=== PATIENT | female | born 1985 | race Caucasian/White ===

== ENCOUNTER → 2016-12-19 | Outpatient (CLI) | payer OTHER ==
[~2016-12-19] MED LIST: ACHD5005 PO; DCS100C PO; Ibuprofen PO; PREN-102 PO; SMT80CT PO
--- OUTSIDE RECORDS SUMMARY | 2016-12-19 09:41 | XMS REPORT ---
Author VINAY Jordan [facility] eClinicalWorks Address Unknown Phone Unavailable Care Team Providers Care Cataract Lens Generator Name Role Phone VINAY EDWARD Unavailable Allergies No Known Allergies Problems Problem Type Condition Code Onset Dates Condition Status Assessment Encounter for immunization Z23 Active Medications No Known Medications Procedures Procedure Coding System Code Date SINGLE IMMUNIZATION ADMIN CPT-4 67601 Aug 07, 2016 FLUARIX QUAD P-FREE 3 AND UP .50 2015 CPT-4 20483 Aug 07, 2016 Results No Known Results Immunizations Vaccine Administration Date FLUARIX QUAD P-FREE 3 AND UP .50 2015Aug 07, 2016 Summary Purpose eClinicalWorks Submission
--- NOTE | 2016-12-19 18:12 | Diagnostic Imaging Report ---
Transabdominal and transvaginal pelvic ultrasound. INDICATION: Right lower quadrant abdominal pain. FINDINGS: The uterus is 7.9 x 4.3 x 3.0 cm. The endometrial stripe is 5 mm in thickness. There is a fairly homogeneous appearance of the myometrium with no discrete mass. The right ovary is 3.6 x 2.1 x 3.2 cm and the left ovary is 2.7 x 2.3 x 3.2 cm. There are arterial and venous waveforms demonstrated in both ovaries. No adnexal mass or fluid collection seen. IMPRESSION: Unremarkable exam. Dictated by: Dictated on workstation # [id number]
== END ==
LOC: RAD 09:38
PROVIDERS: ATTEND Nurse Practitioner
DX: R10.31 Right lower quadrant pain (principal); N93.8 Other specified abnormal uterine and vaginal bleeding
CPT/HCPCS: 76830; 76856

== ENCOUNTER → 2017-03-13 | Outpatient (CLI) | payer OTHER | LOC: LAB 11:42 | PROVIDERS: ATTEND Obstetrics & Gynecology | DX: N93.8 Other specified abnormal uterine and vaginal bleeding (principal); E34.9 Endocrine disorder, unspecified | CPT/HCPCS: 36415; 84702 ==

== ENCOUNTER → 2017-03-17 | Outpatient (CLI) | payer OTHER | END | disposition home or self-care (01) | LOC: LAB 09:56 | PROVIDERS: ATTEND Obstetrics & Gynecology | DX: O20.0 Threatened abortion (principal) | CPT/HCPCS: 36415; 84702 ==

== ENCOUNTER → 2017-04-07 | Outpatient (CLI) | payer OTHER | LOC: LAB 09:55 | PROVIDERS: ATTEND Obstetrics & Gynecology | DX: O03.9 Complete or unspecified spontaneous abortion without complication (principal) | CPT/HCPCS: 36415; 84702 ==

== ENCOUNTER → 2017-09-15 | Outpatient (CLI) | payer OTHER ==
--- NOTE | 2017-09-15 17:38 | Diagnostic Imaging Report ---
INDICATION: Anatomic survey. TECHNIQUE: Multiple real-time grayscale images were obtained over the gravid uterus transabdominally. COMPARISON: None FINDINGS: Biometrical measurements are as follows: Biparietal 5.07 cm, age 21 weeks 3 days. Head circumference 19.69 cm, age 22 weeks 0 days. Abdominal circumference 16.23 cm, age 21 weeks 3 days. Femur length 3.78 cm, age 22 weeks 1 days. Sonographic estimate age: 21 weeks 6 days. Sonographic estimated date of delivery: 01/20/2018. Estimated Weight: 441 gm (+/- 64 gm). LMP percentile: 41%. heart rate: 152 beats per minute. number: 1 of 1. The amniotic fluid is within normal limits with a vertical pocket measuring 5 cm in size. The placenta is grade 2, with posterior location and appears borderline low lying, approximately 2.8 cm from the internal os. The position is variable. The kidneys, bladder, stomach, four-chamber heart, three-vessel cord, spine, and cord insertion are visualized. The intracranial structures including the ventricles and posterior fossa are not well seen due to positioning. The cervix measures 4.7 cm in length. IMPRESSION: 1. Single intrauterine gestation, with a heart rate of 152 bpm, measuring 21 weeks and 6 days. This is concordant with the clinical dates. 2. Anatomic survey as described above. The intracranial structures are not well-seen due to positioning. 3. Borderline low-lying placenta, recommend attention on followup exam. Dictated by: Dictated on workstation # [id number]
== END ==
LOC: RAD 13:49
PROVIDERS: ATTEND Obstetrics & Gynecology
DX: Z34.92 Encounter for supervision of normal pregnancy, unspecified, second trimester (principal); Z3A.21 21 weeks gestation of pregnancy
CPT/HCPCS: 76805

== ENCOUNTER 2018-01-08 05:35 | Outpatient (CLI) | payer OTHER ==
[~2018-01-08] VITALS: Ht 162.6 cm; Wt 92.5 kg
[2018-01-08] MEDS ORDERED: [UNRECOGNIZED DRUG - CODE] PO (11:20)
[2018-01-08] MEDS ORDERED: PNV1TABL81 PO (11:20)
== END 2018-01-08 11:42 ==
LOC: PREOP 05:35
PROVIDERS: ATTEND Obstetrics & Gynecology
DX: Z01.818 Encounter for other preprocedural examination (principal); O34.211 Maternal care for low transverse scar from previous cesarean delivery

== ENCOUNTER 2018-01-14 05:20 | Inpatient (IN) | payer OTHER ==
[~2018-01-14] VITALS: Ht 162.6 cm; Wt 90.7 kg
[~2018-01-14 05:20] MED LIST changes: +PNV1TABL81 PO; +[UNRECOGNIZED DRUG - CODE] PO
[2018-01-14] MEDS ORDERED: LACTATED RINGERS 1,000 ML IV SCH ×2 (10:27)
[2018-01-14] MEDS ORDERED: FAMOTIDINE 20MG/2ML IV (PEPCID) IV ONE (10:30)
[2018-01-14] MEDS ORDERED: CITRIC ACID/SOB CIT (BICITRA) 30 ML UDC PO ONE (10:30)
[2018-01-14] MEDS ORDERED: METOCLOPRAMIDE INJ 10 MG/2 ML (REGLAN) IV ONE (10:30)
[2018-01-14] MEDS ORDERED: ceFAZolin INJECTION 1,000 MG in NS (IVPB) 100 ML IV ONE (10:45)
[2018-01-14 10:50] VITALS: BP 113/66
[2018-01-14] MEDS ORDERED: raNItidine 50 MG/2 ML INJ (ZANTAC) IV ONE (11:15)
[2018-01-14 11:25] LABS: BASOPHILS % (AUTO) 0 % (0-10); EOSINOPHILS # (AUTO) 0.1 10^3/uL (0.0-0.3); EOSINOPHILS % (AUTO) 1 % (0-10); HEMATOCRIT 37 % (35-52); HEMOGLOBIN 12.9 G/DL (11.5-16.0); LYMPHOCYTES # (AUTO) 1.8 X 10^3 (1.0-4.0); LYMPHOCYTES % (AUTO) 18 % (12-44); MEAN CORPUSCULAR HEMOGLOBIN 32 PG (25-34); MEAN CORPUSCULAR HGB CONC 35 G/DL (32-36); MEAN CORPUSCULAR VOLUME 91 FL (80-99); MEAN PLATELET VOLUME 9.9 FL (7.4-10.4); MONOCYTES # (AUTO) 0.7 X 10^3 (0.0-1.0); MONOCYTES % (AUTO) 7 % (0-12); NEUTROPHILS # (AUTO) 7.6 X 10^3 (1.8-7.8); NEUTROPHILS % (AUTO) 74 % (42-75); PLATELET COUNT 159 10^3/uL (130-400); RED BLOOD COUNT 4.08 10^6/uL (4.35-5.85); RED CELL DISTRIBUTION WIDTH 13.6 % (10.0-14.5); WHITE BLOOD COUNT 10.2 10^3/uL (4.3-11.0)
[2018-01-14] MEDS ORDERED: OXYTOCIN/NORMAL SALINE 1,000 ML IV ONE (11:53)
[2018-01-14] MEDS ORDERED: ONDANSETRON 4 MG/2 ML (SDV) Z0FRAN ONE (11:56)
[2018-01-14] MEDS ORDERED: fentaNYL INJECTION 100 MCG/2 ML AMP ONE (11:57)
[2018-01-14] MEDS ORDERED: ceFAZolin 1,000 MG (ANCEF) VIAL ONE (11:59)
[2018-01-14] MEDS ORDERED: NS (IVPB) 100 ML ONE (11:59)
--- NOTE | 2018-01-14 12:10 | Progress Note-Pre Operative ---
Pre-Operative Progress Note H&P Reviewed The H&P was reviewed, patient examined and no changes noted. Date Seen by Provider: Jan 14, 2018 Time Seen by Provider: 12:00 Date H&P Reviewed: Jan 14, 2018 Time H&P Reviewed: 11:45 Pre-Operative Diagnosis: Previous section, GBS + ALENA PANIAGUA DO Jan 14, 2018 12:10
[2018-01-14 12:19] LABS: BILIRUBIN,URINE NEGATIVE (NEGATIVE); CLARITY,URINE CLEAR; COLOR,URINE YELLOW; GLUCOSE, URINE (UA) NEGATIVE (NEGATIVE); KETONES,URINE 3+ (NEGATIVE); LEUKOCYTE ESTERASE ,URINE NEGATIVE (NEGATIVE); NITRITE,URINE NEGATIVE (NEGATIVE); PH,URINE 6 (5-9); PROTEIN,URINE NEGATIVE (NEGATIVE); UROBILINOGEN,URINE NORMAL (NORMAL)
[2018-01-14 12:27] LABS: BACTERIA,URINE NEGATIVE /HPF; WBC,URINE RARE /HPF
[2018-01-14] MEDS ORDERED: PHENYLEPHRINE 100 MCG/ML 10 ML (ANESTHESIA) SYR ONE (12:51)
[2018-01-14] MEDS ORDERED: D5 LR IV SOLUTION 1,000 ML IV SCH (13:16)
[2018-01-14] MEDS ORDERED: OXYTOCIN/NORMAL SALINE 500 ML IV SCH (13:16)
[2018-01-14] MEDS ORDERED: TETANUS,DIPTH,PERTUSS P/F (BOOSTRIX) 0.5 ML VIAL IM SCH (13:30)
[2018-01-14] MEDS ORDERED: HYDROmorphone 2 MG/ML VIAL (DILAUDID) IVP PRN ×2 (13:30)
[2018-01-14] MEDS ORDERED: MEASLES,MUMPS,RUBELLA 1 EA INJ SC SCH (13:30)
[2018-01-14] MEDS ORDERED: ONDANSETRON 4 MG/2 ML (SDV) Z0FRAN IVP PRN (13:30)
[2018-01-14] MEDS ORDERED: fentaNYL INJECTION 100 MCG/2 ML AMP IVP PRN (13:30)
[2018-01-14] MEDS ORDERED: PROMETHAZINE INJ 25 MG/ML (PHENERGAN) AMP IVP PRN (13:30)
[2018-01-14] MEDS ORDERED: KETOROLAC 30 MG/ML VIAL IVP SCH (13:30)
--- NOTE | 2018-01-14 13:39 | Cesarean Section Operative ---
Procedure Procedure Note Pre-operative Diagnosis: Mikayla Whelan is a 32 /Para 3/1 ,Gestational Age 39 weeks for repeat section Post-operative Diagnosis: same, omental adhesions Procedure: Repeat low transverse section Physician: ALENA PANIAGUA Estimated blood loss: 750 mL Disposition: stable Findings: Viable male infant, Apgars 8/9, weight 8#3oz, intact placenta, 3vc, normal appearing uterus, tubes, and ovaries. Indications:Mikayla Whelan is a (32 /Para 3/1 ,Gestational Age 39 weeks for repeat section. Procedure Details: The patient was seen in pre-op and the procedure was discussed with the patient in full, including the risks, benefits, and alternatives. All questions were answered. The patient was taken to the operating room and a time out was performed, verifying patient and procedure. After spinal anesthesia was placed by our anesthesia colleagues, the patient was placed in the dorsal supine with leftward tilt for uterine displacement.~ Her abdomen was then prepped and draped in the typical sterile fashion. A Pfannenstiel skin incision was made using a scalpel and carried down through the underlying fascia. The fascia was incised in the midline and tented up using Stuart clamps. On both the inferior and superior fascia side the rectus muscle was dissected off bluntly and sharply using Galo scissors. The peritoneum was identified and entered bluntly in the midline. This was then stretched laterally using manual strength. After entering the abdominal cavity and confirming lack of intraperitoneal adhesions, a large Ron retractor was placed and the lower uterine segment was visualized. A scalpel was utilized to make a low transverse uterine incision. Amniotomy was performed with an Allis clamp with return of clear fluid. The 's head was grasped and brought to the level of the incision. head delivered with assistance of the silastic suction and was delivered without difficulty. Mouth and nares were suctioned with bulb suction. After the umbilical cord was clamped and cut, the was handed off to the pediatric staff. A sample of cord blood was then obtained. The placenta was delivered intact via uterine massage. The uterus was cleared of all clots and debris. The uterine incision was closed using 0 Vicryl in a running locked fashion. A second imbricated layer was placed using 0 Vicryl in a running fashion as well. The bilateral tubes and ovaries appeared normal. The abdominal gutters were cleared of all clots and debris. A final check of the uterine incision showed it to be hemostatic. Now previously noted omental adhesions were taken down off the anterior abdominal wall and also the left side of the lower uterine segment. These were taken down with cautery and a small portion of omentum was removed due to bleeding and scarring. The peritoneum was closed using 3-0 Vicryl in a running fashion. The fascia was closed with 0 Vicryl in a running fashion. The subcutaneous space was hemostatic , and irrigated. The subcutaneous space was closed with 3-0 Vicryl in several single interrupted stitches. The skin was then closed using 4-0 Monocryl in a running subcuticular fashion. The skin edges were reapproximated together and were hemostatic. A pressure dressing was applied. All sponge, lap and needle counts were correct at the end of the procedure per nursing. Vitals - Labs Vital Signs - I&O Vital Signs Date Time Temp Pulse Resp B/P (MAP) Pulse Ox O2 Delivery O2 Flow Rate FiO2 01/14/18 10:50 98.1 83 18 113/66 (82) Room Air Labs Laboratory Tests 01/14/18 11:05: White Blood Count 10.2, Red Blood Count 4.08L, Hemoglobin 12.9, Hematocrit 37, Mean Corpuscular Volume 91, Mean Corpuscular Hemoglobin 32, Mean Corpuscular Hemoglobin Concent 35, Red Cell Distribution Width 13.6, Platelet Count 159, Mean Platelet Volume 9.9, Neutrophils (%) (Auto) 74, Lymphocytes (%) (Auto) 18, Monocytes (%) (Auto) 7, Eosinophils (%) (Auto) 1, Basophils (%) (Auto) 0, Neutrophils # (Auto) 7.6, Lymphocytes # (Auto) 1.8, Monocytes # (Auto) 0.7, Eosinophils # (Auto) 0.1, Basophils # (Auto) 0.0 01/14/18 12:00: Urine Color YELLOW, Urine Clarity CLEAR, Urine pH 6, Urine Specific Bureau 1.015L, Urine Protein NEGATIVE, Urine Glucose (UA) NEGATIVE, Urine Ketones 3+H, Urine Nitrite NEGATIVE, Urine Bilirubin NEGATIVE, Urine Urobilinogen NORMAL, Urine Leukocyte Esterase NEGATIVE, Urine RBC (Auto) NEGATIVE, Urine RBC NONE, Urine WBC RARE, Urine Squamous Epithelial Cells 2-5, Urine Crystals NONE, Urine Bacteria NEGATIVE, Urine Casts NONE, Urine Mucus NEGATIVE, Urine Culture Indicated NO ALENA PANIAGUA DO Jan 14, 2018 13:39
[2018-01-14 15:10] VITALS: BP 96/59
[2018-01-14] MEDS: HYDROcodone/APAP 5 MG/325 MG (LORTAB) TAB PO PRN ×2 (16:43→20:35)
[2018-01-14] MEDS ORDERED: IBUPROFEN 600 MG (MOTRIN) TAB PO ONE (20:29)
[2018-01-14] MEDS: DOCUSATE SODIUM 100 MG (COLACE) CAP PO SCH (20:34)
[2018-01-14] MEDS: IBUPROFEN 600 MG (MOTRIN) TAB PO SCH (20:34)
[2018-01-14 20:35] VITALS: BP 106/72
[2018-01-14] MEDS ORDERED: DOCUSATE SODIUM 100 MG (COLACE) CAP PO SCH ×2 (21:00)
[2018-01-15 00:35] VITALS: BP 96/57
[2018-01-15] MEDS ORDERED: IBUPROFEN 600 MG (MOTRIN) TAB PO ONE ×2 (03:04→09:23)
[2018-01-15] MEDS: IBUPROFEN 600 MG (MOTRIN) TAB PO SCH ×4 (03:20→21:32)
[2018-01-15] MEDS: HYDROcodone/APAP 5 MG/325 MG (LORTAB) TAB PO PRN ×4 (03:20→18:43)
[2018-01-15 03:22] VITALS: BP 108/73
[2018-01-15 06:35] LABS: BASOPHILS % (AUTO) 0 % (0-10); EOSINOPHILS % (AUTO) 0 % (0-10); HEMATOCRIT 36 % (35-52); HEMOGLOBIN 12.5 G/DL (11.5-16.0); LYMPHOCYTES # (AUTO) 1.7 X 10^3 (1.0-4.0); LYMPHOCYTES % (AUTO) 12 % (12-44); MEAN CORPUSCULAR HEMOGLOBIN 32 PG (25-34); MEAN CORPUSCULAR HGB CONC 35 G/DL (32-36); MEAN CORPUSCULAR VOLUME 91 FL (80-99); MEAN PLATELET VOLUME 9.6 FL (7.4-10.4); MONOCYTES % (AUTO) 7 % (0-12); NEUTROPHILS # (AUTO) 11.2 X 10^3 (1.8-7.8); NEUTROPHILS % (AUTO) 80 % (42-75); PLATELET COUNT 158 10^3/uL (130-400); RED BLOOD COUNT 3.89 10^6/uL (4.35-5.85); RED CELL DISTRIBUTION WIDTH 13.7 % (10.0-14.5)
[2018-01-15 09:30] VITALS: BP 117/75
[2018-01-15] MEDS: FERROUS SULF 325 MG (IRON) TAB PO SCH (09:30)
[2018-01-15] MEDS: DOCUSATE SODIUM 100 MG (COLACE) CAP PO SCH ×2 (09:30→21:32)
--- OUTSIDE RECORDS SUMMARY | 2018-01-15 10:28 | XMS REPORT ---
Author Author Lily Lomas Organization [facility] Address [address] [place], [place] [id number] Care Team Providers Care Ent Nurse Name Role Phone Lily Lomas PCP [phone] Lily Lomas PreferredProvider [phone] Allergies and Adverse Reactions Name Reaction Notes PENICILLINS SULFA (SULFONAMIDES) Plan of Treatment Not available. Medications Not available. Problem List Not available. 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 History of Past Illness Name Date of Onset Comments Anxiety Amenorrhea Feb 20 2017 9:34AM Payers Insurance Name Company Name Plan Name Plan Number Policy Number Policy Group Number Start Date [facility] [employer] [id number] N/A History of Encounters Visit Date Visit Type Provider 02/20/2017 Office visit Lily Lomas APRN
--- OUTSIDE RECORDS SUMMARY | 2018-01-15 10:28 | XMS REPORT ---
Author VINAY Jordan [facility] eClinicalWorks Address Unknown Phone Unavailable Care Team Providers Care Seal Delivery Vehicle Officer Name Role Phone VINAY EDWARD Unavailable Allergies No Known Allergies Problems Problem Type Condition Code Onset Dates Condition Status Assessment Encounter for immunization Z23 Active Medications No Known Medications Procedures Procedure Coding System Code Date SINGLE IMMUNIZATION ADMIN CPT-4 31123 Aug 07, 2016 FLUARIX QUAD P-FREE 3 AND UP .50 2015 CPT-4 21361 Aug 07, 2016 Results No Known Results Immunizations Vaccine Administration Date FLUARIX QUAD P-FREE 3 AND UP .50 2015Aug 07, 2016 Summary Purpose eClinicalWorks Submission
--- OUTSIDE RECORDS SUMMARY | 2018-01-15 10:29 | XMS REPORT | Continuity of Care Document ---
Author Author [facility] Organization [facility] Address Unknown Phone Unavailable Allergies Active Description Code Type Severity Reaction Onset Reported/Identified Relationship to Patient Clinical Status Yes Penicillins [id number] Drug Allergy Unknown N/A 03/11/2014 Yes Sulfa (Sulfonamide Antibiotics) [id number] Drug Allergy Unknown N/A 2013 Medications There is no data. Problems Date Dx Coded Attending Type Code Diagnosis Diagnosed By 03/17/2014 ALENA PANIAGUA DO Ot 652.21 BREECH PRESENTAT-DELIVER 03/17/2014 ALENA PANIAGUA DO Ot 658.01 OLIGOHYDRAMNIOS-DELIVER 03/17/2014 ALENA PANIAGUA DO Ot 660.01 OBSTRUC/FET MALPOS-DELIV 03/17/2014 ALENA PANIAGUA DO Ot V06.1 [id number], COMBINED [ 03/17/2014 ALENA PANIAGUA DO Ot V27.0 DELIVER-SINGLE LIVEBORN 03/27/2014 ROXI RACHEL, SHIRA Luther Ot 666.14 POSTPART HEM NEC-POSTPAR 12/19/2016 ALENA PANIAGUA DO Ot 652.23 BREECH PRESENT-ANTEPART 12/19/2016 ALENA PANIAGUA DO Ot 658.03 OLIGOHYDRAMNIOS-ANTEPAR 12/19/2016 ALENA PANIAGUA DO Ot V72.83 EXAM PRE-OPERATIVE NEC 12/19/2016 ALENA PANIAGUA DO Ot V74.8 SCREEN-BACTERIAL DIS NEC 12/19/2016 PARKER FERGUSON SODA WORKER Ot N93.8 OTHER SPECIFIED ABNORMAL UTERINE AND VAG 12/19/2016 PARKER FERGUSONP Ot R10.31 RIGHT LOWER QUADRANT PAIN 12/25/2016 PARKER FERGUSONP Ot N93.8 OTHER SPECIFIED ABNORMAL UTERINE AND VAG 12/25/2016 PARKER FERGUSON SODA WORKER Ot R10.31 RIGHT LOWER QUADRANT PAIN 01/22/2017 QUICK, PARKER W SODA WORKER Ot N93.8 OTHER SPECIFIED ABNORMAL UTERINE AND VAG 01/22/2017 PARKER FERGUSON SODA WORKER Ot R10.31 RIGHT LOWER QUADRANT PAIN 03/14/2017 PANIAGUA DO ALENA C Ot E34.9 ENDOCRINE DISORDER, UNSPECIFIED 03/14/2017 PANIAGUA DO, ALENA C Ot N93.8 OTHER SPECIFIED ABNORMAL UTERINE AND VAG 03/17/2017 PANIAGUA DO, ALENA C Ot O20.0 THREATENED 04/14/2017 PANIAGUA DO ALENA C Ot E34.9 ENDOCRINE DISORDER, UNSPECIFIED 04/14/2017 PANIAGUA DO, ALENA C Ot N93.8 OTHER SPECIFIED ABNORMAL UTERINE AND VAG 04/17/2017 PANIAGUA DO ALENA C Ot O20.0 THREATENED 05/06/2017 PANIAGUA DO ALENA C Ot O03.9 COMPLETE OR UNSP SPONTANEOUS [place] 09/11/2017 PARKER FERGUSON SODA WORKER Ot N93.8 OTHER SPECIFIED ABNORMAL UTERINE AND VAG 09/11/2017 PARKER FERGUSON SODA WORKER Ot R10.31 RIGHT LOWER QUADRANT PAIN 09/11/2017 PANIAGUA DO ALENA C Ot E34.9 ENDOCRINE DISORDER, UNSPECIFIED 09/11/2017 PANIAGUA DO, ALENA C Ot N93.8 OTHER SPECIFIED ABNORMAL UTERINE AND VAG 09/11/2017 PANIAGUA DO ALENA C Ot O20.0 THREATENED 09/11/2017 PANIAGUA DO ALENA C Ot O03.9 COMPLETE OR UNSP SPONTANEOUS [place] 10/27/2017 JAC PANIAGUA DOA C Ot Z34.92 ENCNTR FOR SUPRVSN OF NORMAL PREG, UNSP, 10/27/2017 ALENA PANIAGUA DO C Ot Z3A.21 21 WEEKS GESTATION OF 10/27/2017 ARCELIA JOVEL ALENA C Ot Z34.92 ENCNTR FOR SUPRVSN OF NORMAL PREG, UNSP, 10/27/2017 JAC PANIAGUA DOA C Ot Z3A.21 21 WEEKS GESTATION OF 11/04/2017 ALENA PANIAGUA DO C Ot Z34.92 ENCNTR FOR SUPRVSN OF NORMAL PREG, UNSP, 11/04/2017 ARCELIA JOVEL ALENA C Ot Z3A.21 21 WEEKS GESTATION OF 01/08/2018 ALENA PANIAGUA DO Ot O34.211 MATERN CARE FOR LOW TRANSVERSE SCAR FROM 01/08/2018 PANIAGUA DO, ALENA C Ot Z01.818 ENCOUNTER FOR OTHER PREPROCEDURAL EXAMIN 01/12/2018 PANIAGUAElie JOVEL ALENA C Ot O34.211 MATERN CARE FOR LOW TRANSVERSE SCAR FROM 01/12/2018 PANIAGUA DO ALENA C Ot Z01.818 ENCOUNTER FOR OTHER PREPROCEDURAL EXAMIN 01/14/2018 MARTY PARKER W SODA WORKER Ot N93.8 OTHER SPECIFIED ABNORMAL UTERINE AND VAG 01/14/2018 MARTY PARKER W SODA WORKER Ot R10.31 RIGHT LOWER QUADRANT PAIN 01/14/2018 PANIAGUA DO, ALENA C Ot E34.9 ENDOCRINE DISORDER, UNSPECIFIED 01/14/2018 PANIAGUA DO, ALENA C Ot N93.8 OTHER SPECIFIED ABNORMAL UTERINE AND VAG 01/14/2018 PANIAGUA DO, ALENA C Ot O20.0 THREATENED 01/14/2018 PANIAGUA DO, ALENA C Ot O03.9 COMPLETE OR UNSP SPONTANEOUS [place] 01/14/2018 MARTY PARKER W SODA WORKER Ot N93.8 OTHER SPECIFIED ABNORMAL UTERINE AND VAG 01/14/2018 PARKER FERGUSON SODA WORKER Ot R10.31 RIGHT LOWER QUADRANT PAIN 01/14/2018 PANIAGUA DO, ALENA C Ot E34.9 ENDOCRINE DISORDER, UNSPECIFIED 01/14/2018 PANIAGUA DO, ALENA C Ot N93.8 OTHER SPECIFIED ABNORMAL UTERINE AND VAG 01/14/2018 PANIAGUA DO, ALENA C Ot O20.0 THREATENED 01/14/2018 PANIAGUA DO, ALENA C Ot O03.9 COMPLETE OR UNSP SPONTANEOUS [place] 01/14/2018 MARTY PARKER W SODA WORKER Ot N93.8 OTHER SPECIFIED ABNORMAL UTERINE AND VAG 01/14/2018 MARTY PARKER W SODA WORKER Ot R10.31 RIGHT LOWER QUADRANT PAIN 01/14/2018 PANIAGUA DO, ALENA C Ot E34.9 ENDOCRINE DISORDER, UNSPECIFIED 01/14/2018 PANIAGUA DO, ALENA C Ot N93.8 OTHER SPECIFIED ABNORMAL UTERINE AND VAG 01/14/2018 PANIAGUA DO, ALENA C Ot O20.0 THREATENED 01/14/2018 PANIAGUA DO, ALENA C Ot O03.9 COMPLETE OR UNSP SPONTANEOUS WI 01/14/2018 MARTY PARKER W SODA WORKER Ot N93.8 OTHER SPECIFIED ABNORMAL UTERINE AND VAG 01/14/2018 PARKER FERGUSON W SODA WORKER Ot R10.31 RIGHT LOWER QUADRANT PAIN 01/14/2018 PANIAGUA DO, ALENA C Ot E34.9 ENDOCRINE DISORDER, UNSPECIFIED 01/14/2018 PANIAGUA DO, ALENA C Ot N93.8 OTHER SPECIFIED ABNORMAL UTERINE AND VAG 01/14/2018 PANIAGUA DO, ALENA C Ot O20.0 THREATENED 01/14/2018 PANIAGUA DO, ALENA C Ot O03.9 COMPLETE OR UNSP SPONTANEOUS WI 01/14/2018 PARKER FERGUSON SODA WORKER Ot N93.8 OTHER SPECIFIED ABNORMAL UTERINE AND VAG 01/14/2018 PARKER FERGUSON SODA WORKER Ot R10.31 RIGHT LOWER QUADRANT PAIN 01/14/2018 PANIAGUA DO, ALENA C Ot E34.9 ENDOCRINE DISORDER, UNSPECIFIED 01/14/2018 PANIAGUA DO, ALENA C Ot N93.8 OTHER SPECIFIED ABNORMAL UTERINE AND VAG 01/14/2018 PANIAGUA DO, ALENA C Ot O20.0 THREATENED 01/14/2018 PANIAGUA DO, ALENA C Ot O03.9 COMPLETE OR UNSP SPONTANEOUS [place] 01/15/2018 PARKER FERGUSON SODA WORKER Ot N93.8 OTHER SPECIFIED ABNORMAL UTERINE AND VAG 01/15/2018 PARKER FERGUSON SODA WORKER Ot R10.31 RIGHT LOWER QUADRANT PAIN 01/15/2018 PANIAGUA DO, ALENA C Ot E34.9 ENDOCRINE DISORDER, UNSPECIFIED 01/15/2018 PANIAGUA DO, ALENA C Ot N93.8 OTHER SPECIFIED ABNORMAL UTERINE AND VAG 01/15/2018 PANIAGUA DO, ALENA C Ot O20.0 THREATENED 01/15/2018 PANIAGUA DO, ALENA C Ot O03.9 COMPLETE OR UNSP SPONTANEOUS [place] Procedures Code Description Performed By Performed On 74.1 LOW CERVICAL 03/15/2014 Results Test Result Range Serum or plasma choriogonadotropin measurement (units/volume) - 04/07/17 10:01 Serum or plasma choriogonadotropin measurement (units/volume) < m[iU ]/mL <5 Complete blood count (CBC) with automated white blood cell (WBC) differential - 01/14/18 11:05 Blood leukocytes automated count (number/volume) 10.2 10*3/uL 4.3-11.0 Blood erythrocytes automated count (number/volume) 4.08 10*6/uL 4.35-5.85 Venous blood hemoglobin measurement (mass/volume) 12.9 g/dL 11.5-16.0 Blood hematocrit (volume fraction) 37 % 35-52 Automated erythrocyte mean corpuscular volume 91 [foz_us] 80-99 Automated erythrocyte mean corpuscular hemoglobin (mass per erythrocyte) 32 pg 25-34 Automated erythrocyte mean corpuscular hemoglobin concentration measurement ( mass/volume) 35 g/dL 32-36 Automated erythrocyte distribution width ratio 13.6 % 10.0-14.5 Automated blood platelet count (count/volume) 159 10*3/uL 130-400 Automated blood platelet mean volume measurement 9.9 [foz_us] 7.4-10.4 Automated blood neutrophils/100 leukocytes 74 % 42-75 Automated blood lymphocytes/100 leukocytes 18 % 12-44 Blood monocytes/100 leukocytes 7 % 0-12 Automated blood eosinophils/100 leukocytes 1 % 0-10 Automated blood basophils/100 leukocytes 0 % 0-10 Blood neutrophils automated count (number/volume) 7.6 10*3 1.8-7.8 Blood lymphocytes automated count (number/volume) 1.8 10*3 1.0-4.0 Blood monocytes automated count (number/volume) 0.7 10*3 0.0-1.0 Automated eosinophil count 0.1 10*3/uL 0.0-0.3 Automated blood basophil count (count/volume) 0.0 10*3/uL 0.0-0.1 Blood type T Indirect antibody screen panel - 01/14/18 11:05 ABO+Rh group AP NRG Transfusion band number [id number] BANNER Blood group antibody screen NEGATIVE NR Complete urinalysis with reflex to culture - 01/14/18 12:00 Urine color determination YELLOW NRG Urine clarity determination CLEAR NRG Urine pH measurement by test strip 6 5-9 Specific gravity of urine by test strip 1.015 1.016- 1.022 Urine protein assay by test strip, semi-quantitative NEGATIVE NEGATIVE Urine glucose detection by automated test strip NEGATIVE NEGATIVE Erythrocytes detection in urine sediment by light microscopy NEGATIVE NEGATIVE Urine ketones detection by automated test strip 3+ NEGATIVE Urine nitrite detection by test strip NEGATIVE NEGATIVE Urine total bilirubin detection by test strip NEGATIVE NEGATIVE Urine urobilinogen measurement by automated test strip (mass/volume) NORMAL NORMAL Urine leukocyte esterase detection by dipstick NEGATIVE NEGATIVE Automated urine sediment erythrocyte count by microscopy (number/high power field) NONE NRG Automated urine sediment leukocyte count by microscopy (number/high power field ) RARE NRG Bacteria detection in urine sediment by light microscopy NEGATIVE NRG Squamous epithelial cells detection in urine sediment by light microscopy 2-5 NRG Crystals detection in urine sediment by light microscopy NONE NRG Casts detection in urine sediment by light microscopy NONE NRG Mucus detection in urine sediment by light microscopy NEGATIVE NRG Complete urinalysis with reflex to culture NO NRG Complete blood count (CBC) with automated white blood cell (WBC) differential - 01/15/18 06:30 Blood leukocytes automated count (number/volume) 14.0 10*3/uL 4.3-11.0 Blood erythrocytes automated count (number/volume) 3.89 10*6/uL 4.35-5.85 Venous blood hemoglobin measurement (mass/volume) 12.5 g/dL 11.5-16.0 Blood hematocrit (volume fraction) 36 % 35-52 Automated erythrocyte mean corpuscular volume 91 [foz_us] 80-99 Automated erythrocyte mean corpuscular hemoglobin (mass per erythrocyte) 32 pg 25-34 Automated erythrocyte mean corpuscular hemoglobin concentration measurement ( mass/volume) 35 g/dL 32-36 Automated erythrocyte distribution width ratio 13.7 % 10.0-14.5 Automated blood platelet count (count/volume) 158 10*3/uL 130-400 Automated blood platelet mean volume measurement 9.6 [foz_us] 7.4-10.4 Automated blood neutrophils/100 leukocytes 80 % 42-75 Automated blood lymphocytes/100 leukocytes 12 % 12-44 Blood monocytes/100 leukocytes 7 % 0-12 Automated blood eosinophils/100 leukocytes 0 % 0-10 Automated blood basophils/100 leukocytes 0 % 0-10 Blood neutrophils automated count (number/volume) 11.2 10*3 1.8-7.8 Blood lymphocytes automated count (number/volume) 1.7 10*3 1.0-4.0 Blood monocytes automated count (number/volume) 1.0 10*3 0.0-1.0 Automated eosinophil count 0.0 10*3/uL 0.0-0.3 Automated blood basophil count (count/volume) 0.0 10*3/uL 0.0-0.1 Encounters ACCT No. Visit Date/Time Discharge Status Pt. Type Provider Facility Loc./Unit Complaint [id number] 01/08/2018 05:35:00 01/08/2018 11:42:00 DIS Outpatient ALENA PANIAGUA DO [facility] PREOP PREVIOUS [id number] 09/15/2017 13:49:00 09/15/2017 23:59:59 CLS Outpatient ALENA PANIAGUA DO [facility] RAD FETUS PRESENT DURING [id number] 04/07/2017 09:55:00 04/07/2017 23:59:59 CLS Outpatient ALENA PANIAGUA DO [facility] LAB O03.9 [id number] 03/17/2017 09:56:00 03/17/2017 23:59:59 CLS Outpatient ALENA PANIAGUA DO [facility] LAB O20.0 [id number] 03/13/2017 11:42:00 03/13/2017 23:59:59 CLS Outpatient ALENA PANIAGUA DO [facility] LAB E34.9,N93.8 [id number] 12/19/2016 09:38:00 12/19/2016 23:59:59 CLS Outpatient PARKER FERGUSON [facility] RAD RLQ ABD PAIN [id number] 03/27/2014 10:39:00 03/27/2014 12:22:00 DIS Emergency SHIRA DIANE MD [facility] ER VAG BLEEDING [id number] 03/15/2014 06:03:00 03/17/2014 23:53:00 DIS Inpatient ALENA PANIAGUA DO [facility] LDRP BREECH; OLIGOHYDRAMNIOS [id number] 03/11/2014 12:26:00 03/11/2014 23:59:59 CLS Outpatient ALENA PANIAGUA DO [facility] PREOP BREECH; OLIGOHYDRAMNIOS [id number] 01/14/2018 10:18:00 ACT Inpatient ALENA PANIAGUA DO [facility] LDRP REPEAT SECTION [id number] 10/29/2017 17:00:00 10/29/2017 23:59:59 CLS Out[facility] [id number] 02/20/2017 10:20:59 02/20/2017 23:59:59 [facility] Outpatient Jed Lomas
--- NOTE | 2018-01-15 12:08 | Anesthesia-Regional Post-Op ---
Regional Patient Condition Mental Status: Alert, Oriented x3 Circulation: Same as Pre-Op Headache: Absent Sensation: Full Recovery Motor Block: Absent Post Op Complications Complications None Follow Up Care/Instructions Patient Instructions None needed. Anesthesia/Patient Condition Patient is doing well, no complaints, stable vital signs, no apparent adverse anesthesia problems. No complications reported per nursing. REED NAVA CRNA Jan 15, 2018 12:08
[2018-01-15 12:09] VITALS: BP 106/67
[2018-01-15 15:12] VITALS: BP 108/72
[2018-01-15 21:32] VITALS: BP 99/64
--- NOTE | 2018-01-15 23:56 | Postpartum Progress Note ---
Post Op late entry. Patient seen at 1715 Post-operative Day #1 s/p RLTCS Subjective: Patient is without complaints. Ambulating, voiding after billings removed. Tolerating a regular diet without nausea or vomiting. Normal lochia. Pain is well controlled with oral pain medications. Passing flatus. breast feeding. baby had some respiratory distress after delivery. Morales at 37 weeks, (dated by early US and LMP/ 11 week US consistent with LMP). Objective: 01/15/18 01/15/18 01/15/18 12:09 15:12 21:32 Temp 98.3 98.9 98.1 Pulse 82 92 76 Resp 18 B/P (MAP) 106/67 (80) 108/72 (84) 99/64 (76) Pulse Ox 98 98 96 O2 Delivery Room Air Room Air Room Air 01/14/18 23:59 Intake Total 1400 ml Output Total 760 ml Balance 640 ml Laboratory Tests Test 01/15/18 06:30 Range/Units White Blood Count 14.0 H 4.3-11.0 10^3/uL Red Blood Count 3.89 L 4.35-5.85 10^6/uL Hemoglobin 12.5 11.5-16.0 G/DL Hematocrit 36 35-52 % Mean Corpuscular Volume 91 80-99 FL Mean Corpuscular Hemoglobin 32 25-34 PG Mean Corpuscular Hemoglobin Concent 35 32-36 G/DL Red Cell Distribution Width 13.7 10.0-14.5 % Platelet Count 158 130-400 10^3/uL Mean Platelet Volume 9.6 7.4-10.4 FL Neutrophils (%) (Auto) 80 H 42-75 % Lymphocytes (%) (Auto) 12 12-44 % Monocytes (%) (Auto) 7 0-12 % Eosinophils (%) (Auto) 0 0-10 % Basophils (%) (Auto) 0 0-10 % Neutrophils # (Auto) 11.2 H 1.8-7.8 X 10^3 Lymphocytes # (Auto) 1.7 1.0-4.0 X 10^3 Monocytes # (Auto) 1.0 0.0-1.0 X 10^3 Eosinophils # (Auto) 0.0 0.0-0.3 10^3/uL Basophils # (Auto) 0.0 0.0-0.1 10^3/uL Physical Exam: General - Alert and oriented, no apparent distress Abdomen - Soft, appropriately tender to palpation, non-distended, fundus firm at umbilicus Incision - clean, dry and intact; no erythema or induration, no drainage Extremities - no edema, negative Dexter's bilaterally Assessment: 1. post-operative day # 1, status post RLTCS. Recovering well, hemodynamically stable Plan: Routine post-operative care. Encourage breast feeding. Encourage ambulation. VTE prophylaxis: SCDs. Plan for discharge tomorrow Vitals - Labs Vital Signs - I&O Vital Signs Date Time Temp Pulse Resp B/P (MAP) Pulse Ox O2 Delivery O2 Flow Rate FiO2 01/15/18 21:32 98.1 76 18 99/64 (76) 96 Room Air 01/15/18 15:12 98.9 92 18 108/72 (84) 98 Room Air 01/15/18 12:09 98.3 82 16 106/67 (80) 98 Room Air 01/15/18 09:30 98.1 105 18 117/75 (89) 98 Room Air 01/15/18 03:22 98.7 97 18 108/73 (85) 97 Room Air 01/15/18 00:35 98.4 80 18 96/57 (70) 97 Room Air I & O 01/15/18 06:59 Intake Total 2550 ml Output Total 1910 ml Balance 640 ml Labs Laboratory Tests 01/15/18 06:30: White Blood Count 14.0H, Red Blood Count 3.89L, Hemoglobin 12.5, Hematocrit 36, Mean Corpuscular Volume 91, Mean Corpuscular Hemoglobin 32, Mean Corpuscular Hemoglobin Concent 35, Red Cell Distribution Width 13.7, Platelet Count 158, Mean Platelet Volume 9.6, Neutrophils (%) (Auto) 80H, Lymphocytes (%) (Auto) 12 , Monocytes (%) (Auto) 7, Eosinophils (%) (Auto) 0, Basophils (%) (Auto) 0, Neutrophils # (Auto) 11.2H, Lymphocytes # (Auto) 1.7, Monocytes # (Auto) 1.0, Eosinophils # (Auto) 0.0, Basophils # (Auto) 0.0 ALENA PANIAGUA DO Jan 15, 2018 23:56
[2018-01-15] MEDS ORDERED: ACHD5005 PO (23:58)
[2018-01-15] MEDS ORDERED: DOCU100C37 PO (23:58)
[2018-01-15] MEDS ORDERED: IBUP-1773 PO (23:58)
--- NOTE | 2018-01-15 23:59 | Discharge Inst-Women's Service ---
Discharge Inst-Women's Serv Depart Medication/Instructions New, Converted or Re-Newed RX: RX on Chart Final Diagnosis previous section GBS + Consults/Follow Up Additional Follow Up: Yes (1 week with Annette and 6 week pp exam ) Activity Activity: Activity as Tolerated Driving Instructions: No Driving for 1 Week NO SMOKING: NO SMOKING Nothing Inside Vagina: No Douching, No [place], No Tampons Diet Discharge Diet: No Restrictions Symptoms to Report to : Swelling Increased, Bleeding Excessive, Pain Increased, Fever Over 101 Degrees F, Vaginal Bleeding Increase, Cramps in Feet or Legs, Vaginal Discharge Foul For Any Problems or Questions: Contact Your Physician Skin/Wound Care Infection Signs and Symptoms: Increased Redness, Foul Odor of Wound, Increased Drainage, Skin Itchy or Has a Rash, Increased Swelling, Temperature Above 101 F Operative Area Clean and Dry: Keep Incision Clean/Dry Stitches/Janine/Dermabond: ALENA Henry DO Jan 15, 2018 23:59
[2018-01-16 03:10] VITALS: BP 102/63
[2018-01-16] MEDS: IBUPROFEN 600 MG (MOTRIN) TAB PO SCH ×2 (03:10→09:37)
[2018-01-16 09:30] VITALS: BP 111/74
[2018-01-16] MEDS: DOCUSATE SODIUM 100 MG (COLACE) CAP PO SCH (09:37)
[2018-01-16] MEDS: FERROUS SULF 325 MG (IRON) TAB PO SCH (09:38)
[2018-01-16] MEDS: HYDROcodone/APAP 5 MG/325 MG (LORTAB) TAB PO PRN (10:51)
== END 2018-01-16 12:00 | disposition home or self-care (01) | DRG 766 ==
LOC: LDRP 10:18
PROVIDERS: ADMIT Obstetrics & Gynecology; ATTEND Obstetrics & Gynecology
PROC: 0DBU0ZZ Excision of Omentum, Open Approach (ICD-10-PCS; 2018-01-14)
PROC: 10D00Z1 Extraction of Products of Conception, Low, Open Approach (ICD-10-PCS; principal; 2018-01-14 12:17)
DX: O34.211 Maternal care for low transverse scar from previous cesarean delivery (principal); O99.820 Streptococcus B carrier state complicating pregnancy; O99.89 Other specified diseases and conditions complicating pregnancy, childbirth and the puerperium; N73.6 Female pelvic peritoneal adhesions (postinfective); Z3A.39 39 weeks gestation of pregnancy; Z37.0 Single live birth
CPT/HCPCS: 36415; 81000; 85025; 86850; 86900; 86901; 94664